=== PATIENT | female | born 1995 | race Two or more races ===

== ENCOUNTER 2023-05-15 11:52 | Emergency (ER) | payer OTHER ==
[~2023-05-15] VITALS: Ht 154.9 cm; Wt 54.4 kg
[2023-05-15 12:02] VITALS: O2SAT 98
[2023-05-15] MEDS ORDERED: HALOPERIDOL LACTATE 5 MG/1 ML VIAL IM ONE (12:15)
[2023-05-15] MEDS ORDERED: diphenhydrAMINE 50 MG/1 ML VIAL IM ONE (12:15)
[2023-05-15] MEDS ORDERED: IV NORMAL SALINE 1000 ML BAG IV ONE (12:15)
[2023-05-15] MEDS ORDERED: diphenhydrAMINE 50 MG/1 ML VIAL ONE (12:24)
[2023-05-15] MEDS ORDERED: HALOPERIDOL LACTATE 5 MG/1 ML VIAL ONE (12:25)
== END 2023-05-15 13:59 | disposition left against medical advice (07) ==
LOC: ER 11:52
DX: F91.9 Conduct disorder, unspecified (principal); Z59.00 Homelessness unspecified
CPT/HCPCS: 99283; J1200; J1630; A4606; A4663